=== PATIENT | female | born 1945 | race African-American/Black ===

== ENCOUNTER → 2024-07-23 | Outpatient (CLI) | payer MEDICARE, MEDICAID ==
[~2024-07-23] MED LIST: CARV12.545 MT; HYDR-4009 PO; LOSA100T33 MT; TOPUD PO
== END | disposition home or self-care (01) ==
LOC: RAD 12:29
DX: M85.852 Other specified disorders of bone density and structure, left thigh (principal); M85.851 Other specified disorders of bone density and structure, right thigh; G37.9 Demyelinating disease of central nervous system, unspecified; M81.0 Age-related osteoporosis without current pathological fracture; M47.816 Spondylosis without myelopathy or radiculopathy, lumbar region; M88.9 Osteitis deformans of unspecified bone; M85.9 Disorder of bone density and structure, unspecified
CPT/HCPCS: 77075; 77080

== ENCOUNTER 2024-11-15 19:09 | Emergency (ER) | payer MEDICARE, MEDICAID ==
[~2024-11-15] VITALS: Ht 167.6 cm; Wt 5.0 kg
[~2024-11-15 19:09] MED LIST changes: -CARV12.545 MT; +CARV6.2548 MT; +DUR12 TP; -HYDR-4009 PO; +HYDR25TA MT; -LOSA100T33 MT; -TOPUD PO; +[UNRECOGNIZED DRUG - CODE] IV
[2024-11-15 19:15] VITALS: O2SAT 99
[2024-11-15 20:30] LABS: BASOPHILS % 0.7 % (0.0-2.0); EOSINOPHILS % 2.0 % (0.0-5.0); HEMATOCRIT. 34.8 % (36.0-48.0); HEMOGLOBIN. 11.7 g/dL (12.0-16.0); LYMPHOCYTES % 36.7 % (20.0-50.0); MEAN PLATELET VOLUME 7.9 fl (7.4-10.4); MONOCYTES % 12.5 % (2.0-8.0); NEUTROPHILS % 48.1 % (40.0-76.0); PLATELET 213 x1000/uL (130-400); RED BLOOD CELL COUNT 3.80 mill/uL (4.2-5.4); RED CELL DISTRIBUTION WIDTH 13.2 % (11.6-14.6)
[2024-11-15 20:43] LABS: CREATININE 0.8 mg/dL (0.6-1.0)
[2024-11-15 20:44] LABS: UREA NITROGEN BLOOD 6 mg/dL (9-23)
[2024-11-15 20:45] LABS: ASPARTATE AMINOTRANSFERASE 25 IU/L (<34); BILIRUBIN DIRECT < 0.1 mg/dL (<=3.0)
[2024-11-15 20:46] LABS: BILIRUBIN TOTAL 0.4 mg/dL (0.1-1.0); PROTEIN TOTAL 7.4 g/dL (6.0-8.3)
[2024-11-15] MEDS ORDERED: HYDR-4009 MT (21:36)
[2024-11-15] MEDS ORDERED: HYDR-4001 MT (21:41)
[2024-11-15 22:04] VITALS: BP 167/61; PULSE 77; RESP 19; TEMP 36.6; O2SAT 99
[2024-11-15] MEDS: POTASSIUM CHLORIDE 20MEQ/PACKET PO ONE (22:07)
== END 2024-11-15 22:13 | disposition home or self-care (01) ==
LOC: ER 19:09
DX: G89.29 Other chronic pain (principal); M79.18 Myalgia, other site; R07.89 Other chest pain; I10 Essential (primary) hypertension; Z79.891 Long term (current) use of opiate analgesic; Z79.899 Other long term (current) drug therapy; Z88.5 Allergy status to narcotic agent; Z90.710 Acquired absence of both cervix and uterus
CPT/HCPCS: 36415; 80048; 80076; 85025; 99283

== ENCOUNTER 2024-11-30 16:03 | Emergency (ER) | payer MEDICARE, MEDICAID ==
[~2024-11-30] VITALS: Ht 167.6 cm; Wt 77.0 kg
[~2024-11-30 16:03] MED LIST changes: +HYDR-4001 MT
[2024-11-30 16:23] VITALS: O2SAT 98
[2024-11-30] MEDS ORDERED: DOXE25CA3 MT (19:53)
[2024-11-30 20:16] VITALS: BP 182/77; PULSE 80; RESP 15; TEMP 36.5; O2SAT 99
== END 2024-11-30 20:16 | disposition home or self-care (01) ==
LOC: ER 16:03
DX: G89.4 Chronic pain syndrome (principal); G47.00 Insomnia, unspecified; I10 Essential (primary) hypertension; Z79.891 Long term (current) use of opiate analgesic; Z79.899 Other long term (current) drug therapy; Z88.5 Allergy status to narcotic agent
CPT/HCPCS: 99283